=== PATIENT | male | born 1965 | race Caucasian/White ===

== ENCOUNTER 2019-05-15 09:08 | Emergency (ER) | payer BC ==
[2019-05-15 09:49] VITALS: BP 143/74
--- NOTE | 2019-05-15 10:12 | UC ---
Lower Extremity/Ankle HPI - HPI Summary HPI Summary: Pt presents with c/o right foot/great toe pain, swelling and bruising after slipping on 2 to 3 stairs yesterday. Pt is able to put minimum weight bearing to right foot. - History of Current Complaint Chief Complaint: UCLowerExtremity Stated Complaint: RIGHT FOOT INJURY Time Seen by Provider: 05/15/19 09:47 Hx Obtained From: Patient Onset/Duration: Sudden Onset, Still Present Severity Initially: Moderate Severity Currently: Mild Pain Intensity: 4 Aggravating Factor(s): Standing, Ambulation Alleviating Factor(s): Rest, Elevation Able to Bear Weight: Yes - minimum - Risk Factors Gout Risk Factors: Male DVT Risk Factors: Recent Trauma - fall down stairs Septic Arthritis Risk Factor: Negative - Allergies/Home Medications Allergies/Adverse Reactions: Allergies Allergy/AdvReac Type Severity Reaction Status Date / Time No Known Allergies Allergy Verified 05/15/19 09:49 PMH/Surg Hx/FS Hx/Imm Hx Previously Healthy: Yes - Surgical History Surgical History: Yes Surgery Procedure, Year, and Place: Left Inguinal Herniorrhaphy, 2000, [place] - Family History Known Family History: Positive: Cardiac Disease - Social History Occupation: Employed Full-time Lives: With Family Alcohol Use: Daily 2-3 drinks (wine and beer) Substance Use Type: None Smoking Status (MU): Never Smoked Tobacco Have You Smoked in the Last Year: No - Immunization History Vaccination Up to Date: No Review of Systems All Other Systems Reviewed And Are Negative: Yes Constitutional: Positive: Negative Skin: Positive: Bruising Eyes: Positive: Negative ENT: Positive: Negative Respiratory: Positive: Negative Cardiovascular: Positive: Negative Gastrointestinal: Positive: Negative Genitourinary: Positive: Negative Motor: Positive: Decreased ROM - righ tgreat toe Neurovascular: Positive: Negative Musculoskeletal: Positive: Arthralgia, Decreased ROM, Edema, Myalgia Neurological: Positive: Negative Psychological: Positive: Negative Is Patient Immunocompromised?: No Physical Exam Triage Information Reviewed: Yes Appearance: Well-Appearing Vital Signs: Initial Vital Signs Temp 98.6 F 05/15/19 09:45 Pulse 84 05/15/19 09:45 Resp 18 05/15/19 09:45 BP 143/74 05/15/19 09:45 Pulse Ox 99 05/15/19 09:45 Vital Signs Reviewed: Yes Eye Exam: Normal ENT Exam: Normal Dental Exam: Normal Neck exam: Normal Respiratory: Positive: No respiratory distress Musculoskeletal: Positive: Strength Limited @ - right great toe, ROM Limited @ - right great toe, Edema @ - right great toe Neurological Exam: Normal Psychological Exam: Normal Skin Exam: Other - bruising right great toe. Diagnostics - Radiology No standard instances Radiology Interpretation Completed By: Radiologist - Foreign Law Consultant: Mar Lopes S, ([id number]) Plastic Molding Operator: SHAAN (SERGIOANCE) Report Date: 2018 10:03:00 Report Status: Final ======= Start of Report Content Patient Name: TREVOR REY Medical Record#: [id number] Ordering Physician: Ora Still MATERIAL HANDLER FLOORPERSON Acct.#: [id number] : 1965 Age: 53 Sex: M Location: [facility] Exam Date: 05/15/19 100 ADM Status: REG ER Order Information: FOOT RIGHT 3+ VWS Accession Number: [id number] CPT: 26947 Indication: Right foot pain. 2 views of the right foot demonstrates no fracture or dislocation. No other bone or joint abnormality is identified. Impression no indication: Right foot pain. 3 views of the right foot demonstrates no fracture or dislocation. No other bone or joint abnormality is noted. IMPRESSION: Degenerative changes of the first metatarsophalangeal joint. No fracture is noted. __ <Electronically signed by Mar Lopes MD in OV> 05/15/19 1058 Dictated By: Mar Lopes MD Dictated Date/Time: 05/15/19 105 Transcribed Date/Time: 105 Copy to: CC:Angie Corea MD; Ora Still NP; Trevor Carter MD Imaging - [facility] Imaging - [facility] Imaging - [facility] [address] [facility] [address] [place] [address] [place], [place] [id number] [place] [id number] ph ([phone]) ph [phone] ph ([phone]) End of Report Content Lower Extremity Course/Dx - Differential Dx/Diagnosis Differential Diagnosis/HQI/PQRI: Contusion, Fracture (Closed), Sprain, Strain Provider Diagnosis: Contusion of right great toe without damage to nail Discharge ED - Sign-Out/Discharge Documenting (check all that apply): Patient Departure All imaging exams completed and their final reports reviewed: Yes - Discharge Plan Condition: Stable Disposition: HOME Patient Education Materials: Foot Contusion (ED), Safe Use of NSAIDs (ED) Referrals: Moises Walls MD [Medical Doctor] - If Needed Angie Corea MD [Primary Care Provider] - If Needed - Billing Disposition and Condition Condition: STABLE Disposition: Home
== END 2019-05-15 11:13 | disposition home or self-care (01) ==
LOC: UCCORT 09:08
DX: S90.111A Contusion of right great toe without damage to nail, initial encounter (principal); W18.40XA Slipping, tripping and stumbling without falling, unspecified, initial encounter; Y92.9 Unspecified place or not applicable
CPT/HCPCS: 99202; G0463

== ENCOUNTER 2019-11-26 09:02 | Emergency (ER) | payer BC ==
[2019-11-26 09:30] VITALS: BP 138/86
--- NOTE | 2019-11-26 09:38 | UC ---
Ear Complaint HPI - HPI Summary HPI Summary: 54 yo male with right otalgia radiating to right chin x 1 day no URI symptoms no hearing loss Has a right upper molar that needs a root canal Unable to have it addressed due to covid19 situation no fever no facial swelling - History of Current Complaint Chief Complaint: UCEar Stated Complaint: RT EAR PAIN Time Seen by Provider: 11/26/19 09:03 Hx Obtained From: Patient Onset/Duration: Gradual Onset, Lasting Hours Severity Initially: Mild Severity Currently: Mild Pain Intensity: 3 Pain Scale Used: 0-10 Numeric Associated Signs/Symptoms: Negative: Discharge, Hearing Loss, Foreign Body Sensation, Trauma to Ear, Swelling @, URI Symptoms - Allergies/Home Medications Allergies/Adverse Reactions: Allergies Allergy/AdvReac Type Severity Reaction Status Date / Time No Known Allergies Allergy Verified 11/26/19 09:30 Home Medications: Home Medications Ibuprofen TAB* [Advil TAB*] 400 - 600 mg PO Q6H PRN 03/28/15 [History Confirmed 11/26/19] Penicillin VK 500 MG TAB(NF) [Penicillin VK 500 mg Tab] 500 mg PO QID #28 tab [Rx] PMH/Surg Hx/FS Hx/Imm Hx Previously Healthy: Yes Cardiovascular History: Hypertension - can't remember the med he is on - Surgical History Surgical History: Yes Surgery Procedure, Year, and Place: Left Inguinal Herniorrhaphy, 2000, [place] - Family History Known Family History: Positive: Cardiac Disease, Hypertension - Social History Alcohol Use: Occasionally Substance Use Type: None Smoking Status (MU): Never Smoked Tobacco Have You Smoked in the Last Year: No - Immunization History Vaccination Up to Date: No Review of Systems All Other Systems Reviewed And Are Negative: Yes Constitutional: Positive: Negative Skin: Positive: Negative Eyes: Positive: Negative ENT: Positive: Dental Pain, Ear Ache Respiratory: Positive: Negative Cardiovascular: Positive: Negative Gastrointestinal: Positive: Negative Genitourinary: Positive: Negative Motor: Positive: Negative Neurovascular: Positive: Negative Musculoskeletal: Positive: Negative Neurological/Mental Status: Positive: Negative Psychological: Positive: Negative Physical Exam Triage Information Reviewed: Yes Appearance: Well-Appearing, No Pain Distress, Well-Nourished Vital Signs: Initial Vital Signs Temp 97.8 F 11/26/19 09:24 Pulse 69 11/26/19 09:24 Resp 17 11/26/19 09:24 BP 138/86 11/26/19 09:24 Pulse Ox 97 11/26/19 09:24 Vital Signs Reviewed: Yes Eyes: Positive: Conjunctiva Clear ENT: Positive: Hearing grossly normal, Uvula midline. Negative: Nasal congestion, Nasal drainage, TMs normal - left ok right unable to vis due to cerumen, Trismus, Muffled voice, Hoarse voice, Dental tenderness Dental: Positive: Other: - see image Neck: Positive: Supple, Nontender, No Lymphadenopathy Respiratory: Positive: Lungs clear, Normal breath sounds, No respiratory distress, No accessory muscle use Cardiovascular: Positive: RRR, No Murmur Neurological: Positive: Alert Psychological Exam: Normal Skin Exam: Normal Images Dental: 1 - some erthyema/no discrete abscess or marked swelling Ear Complaint Course/Dx - Differential Dx/Diagnosis Provider Diagnosis: Right ear impacted cerumen, Otalgia, right ear, Dentalgia Discharge ED - Sign-Out/Discharge Documenting (check all that apply): Patient Departure All imaging exams completed and their final reports reviewed: No Studies - Discharge Plan Condition: Stable Disposition: HOME Prescriptions: Penicillin VK 500 MG TAB(NF) [Penicillin VK 500 mg Tab] 500 mg PO QID #28 tab Patient Education Materials: Toothache (ED) Print Language: YORUBA Referrals: Angie Corea MD [Primary Care Provider] - If Needed Additional Instructions: see dentist when able recheck for new or worsening symptoms - Billing Disposition and Condition Condition: STABLE Disposition: Home
== END 2019-11-26 10:00 | disposition home or self-care (01) ==
LOC: UCCORT 09:02
DX: H61.21 Impacted cerumen, right ear (principal); H92.01 Otalgia, right ear; K08.89 Other specified disorders of teeth and supporting structures; I10 Essential (primary) hypertension
CPT/HCPCS: 99213; G0463